=== PATIENT | male | born 1945 | race Caucasian/White ===

== ENCOUNTER 2017-03-25 18:14 | Emergency (ER) | payer MEDICARE, OTHER | END 2017-03-25 21:26 | disposition home or self-care (01) | LOC: ER1 18:14 | DX: T84.021A Dislocation of internal left hip prosthesis, initial encounter (principal); G40.909 Epilepsy, unspecified, not intractable, without status epilepticus; I69.954 Hemiplegia and hemiparesis following unspecified cerebrovascular disease affecting left non-dominant side; F17.210 Nicotine dependence, cigarettes, uncomplicated; Z79.899 Other long term (current) drug therapy; X50.1XXA Overexertion from prolonged static or awkward postures, initial encounter; Y92.009 Unspecified place in unspecified non-institutional (private) residence as the place of occurrence of the external cause | CPT/HCPCS: 27266; 73502; 96374; 96375; 96376; 99152; 99153; 99283; J2270; J2405; J3360 ==

== ENCOUNTER 2017-03-30 06:12 | Inpatient (IN) | payer MEDICARE, OTHER ==
[~2017-03-30] VITALS: Ht 190.5 cm; Wt 96.2 kg
[2017-03-30] MEDS ORDERED: ASPIR 8181 MG PO (06:45)
[2017-03-30] MEDS ORDERED: LIPITOR TAB 1010 MG PO (06:45)
[2017-03-30] MEDS ORDERED: SYMBICORT 16010.2 GM INH (06:47)
[2017-03-30] MEDS ORDERED: BUSPIRONE HCL10 MG PO (06:47)
[2017-03-30] MEDS ORDERED: CELEBREX200 MG PO (06:48)
[2017-03-30] MEDS ORDERED: DEPAKOTE 250 M250 MG PO (06:49)
[2017-03-30] MEDS ORDERED: CYMBALTA60 MG PO (06:49)
[2017-03-30] MEDS ORDERED: NEURONTIN 400400 MG PO (06:49)
[2017-03-30] MEDS ORDERED: NORCO 10-325 T1 EACH PO (06:50)
[2017-03-30] MEDS ORDERED: LISINOPRIL20 MG PO (06:51)
[2017-03-30 06:53] LABS: HEMOGLOBIN 13.7 gm/dl (14.0-17.5); RED BLOOD COUNT 4.41 M/UL (4.20-5.50); WHITE BLOOD COUNT 13.8 K/UL (4.5-11.0)
[2017-03-30] MEDS ORDERED: METOPROLOL SUC100 MG PO (06:53)
[2017-03-30] MEDS ORDERED: SPIRIVA HANDIH18 MCG INH (06:53)
[2017-03-30] MEDS ORDERED: PANTOPRAZOLE SO40 MG PO (06:53)
[2017-03-30 14:10] LABS: HEMOGLOBIN 10.4 gm/dl (14.0-17.5)
[2017-03-30 16:42] LABS: BUN/CREATININE RATIO 15 (0-10)
[2017-03-30 22:19] LABS: HEMOGLOBIN 9.3 gm/dl (14.0-17.5)
[2017-03-30 22:38] LABS: BUN/CREATININE RATIO 16 (0-10)
[2017-03-31 03:24] LABS: HEMOGLOBIN 8.7 gm/dl (14.0-17.5); RED BLOOD COUNT 2.86 M/UL (4.20-5.50); WHITE BLOOD COUNT 13.8 K/UL (4.5-11.0)
[2017-03-31 04:02] LABS: BUN/CREATININE RATIO 18 (0-10)
[2017-03-31 10:26] LABS: HEMOGLOBIN 8.6 gm/dl (14.0-17.5)
[2017-03-31 15:57] LABS: HEMOGLOBIN 7.9 gm/dl (14.0-17.5)
[2017-04-01 03:58] LABS: HEMOGLOBIN 10.1 gm/dl (14.0-17.5); RED BLOOD COUNT 3.29 M/UL (4.20-5.50); WHITE BLOOD COUNT 13.7 K/UL (4.5-11.0)
[2017-04-01 04:18] LABS: BUN/CREATININE RATIO 14 (0-10)
[2017-04-01 16:37] LABS: HEMOGLOBIN 10.4 gm/dl (14.0-17.5)
[2017-04-02 07:31] LABS: HEMOGLOBIN 8.9 gm/dl (14.0-17.5); WHITE BLOOD COUNT 12.5 K/UL (4.5-11.0)
[2017-04-02 07:44] LABS: BUN/CREATININE RATIO 19 (0-10)
[2017-04-02 07:51] LABS: RED BLOOD COUNT 2.92 M/UL (4.20-5.50)
[2017-04-04 06:08] LABS: HEMOGLOBIN 8.5 gm/dl (14.0-17.5); RED BLOOD COUNT 2.74 M/UL (4.20-5.50); WHITE BLOOD COUNT 12.2 K/UL (4.5-11.0)
[2017-04-04 06:28] LABS: BUN/CREATININE RATIO 24 (0-10)
[2017-04-05 06:05] LABS: HEMOGLOBIN 7.5 gm/dl (14.0-17.5); RED BLOOD COUNT 2.42 M/UL (4.20-5.50); WHITE BLOOD COUNT 9.1 K/UL (4.5-11.0)
[2017-04-06 06:05] LABS: HEMOGLOBIN 8.6 gm/dl (14.0-17.5)
[2017-04-06] MEDS ORDERED: MULTIVITAMINS1 EAC1 PO (16:32)
[2017-04-06] MEDS ORDERED: HABITROL 21 MG P1 EA TD (16:32)
[2017-04-06] MEDS ORDERED: XARELTO10 MG PO (16:33)
[2017-04-06] MEDS ORDERED: LORTAB 5-325 M1 EACH PO (16:35)
== END 2017-04-06 16:55 | DRG 466 ==
LOC: CCU 06:12 → ZOBSOF 06:12 → CCU 18:09 → M/S 04-01 19:15
PROVIDERS: Hospitalist; Internal Medicine; ADMIT Orthopaedic Surgery
PROC: 0SPB09Z Removal of Liner from Left Hip Joint, Open Approach (ICD-10-PCS; 2017-03-30)
PROC: 0SUE09Z Supplement Left Hip Joint, Acetabular Surface with Liner, Open Approach (ICD-10-PCS; 2017-03-30)
PROC: 0SPE0JZ Removal of Synthetic Substitute from Left Hip Joint, Acetabular Surface, Open Approach (ICD-10-PCS; 2017-03-30)
PROC: 5A09357 Assistance with Respiratory Ventilation, Less than 24 Consecutive Hours, Continuous Positive Airway Pressure (ICD-10-PCS; 2017-03-30)
PROC: 0SRE01A Replacement of Left Hip Joint, Acetabular Surface with Metal Synthetic Substitute, Uncemented, Open Approach (ICD-10-PCS; principal; 2017-03-30 07:45)
PROC: 30233N1 Transfusion of Nonautologous Red Blood Cells into Peripheral Vein, Percutaneous Approach (ICD-10-PCS; 2017-03-31)
PROC: 30233N1 Transfusion of Nonautologous Red Blood Cells into Peripheral Vein, Percutaneous Approach (ICD-10-PCS; 2017-03-31)
PROC: 30233N1 Transfusion of Nonautologous Red Blood Cells into Peripheral Vein, Percutaneous Approach (ICD-10-PCS; 2017-04-05)
DX: T84.021A Dislocation of internal left hip prosthesis, initial encounter (principal); R57.1 Hypovolemic shock; J95.821 Acute postprocedural respiratory failure; D62 Acute posthemorrhagic anemia; N17.9 Acute kidney failure, unspecified; Y83.8 Other surgical procedures as the cause of abnormal reaction of the patient, or of later complication, without mention of misadventure at the time of the procedure; Y79.3 Surgical instruments, materials and orthopedic devices (including sutures) associated with adverse incidents; E87.5 Hyperkalemia; G40.909 Epilepsy, unspecified, not intractable, without status epilepticus; J44.9 Chronic obstructive pulmonary disease, unspecified; I25.10 Atherosclerotic heart disease of native coronary artery without angina pectoris; I73.9 Peripheral vascular disease, unspecified; E11.9 Type 2 diabetes mellitus without complications; I10 Essential (primary) hypertension; E78.5 Hyperlipidemia, unspecified; D69.6 Thrombocytopenia, unspecified; E83.42 Hypomagnesemia; G62.9 Polyneuropathy, unspecified; K21.9 Gastro-esophageal reflux disease without esophagitis; D72.829 Elevated white blood cell count, unspecified; R51 Headache; M19.90 Unspecified osteoarthritis, unspecified site; F17.210 Nicotine dependence, cigarettes, uncomplicated; R63.0 Anorexia; G89.29 Other chronic pain; H91.90 Unspecified hearing loss, unspecified ear; Z75.1 Person awaiting admission to adequate facility elsewhere; I25.2 Old myocardial infarction; Z79.82 Long term (current) use of aspirin; Z79.1 Long term (current) use of non-steroidal anti-inflammatories (NSAID); Z68.26 Body mass index [BMI] 26.0-26.9, adult; Z79.51 Long term (current) use of inhaled steroids; Z79.891 Long term (current) use of opiate analgesic; Z79.899 Other long term (current) drug therapy; Z88.5 Allergy status to narcotic agent; Z88.8 Allergy status to other drugs, medicaments and biological substances; Z96.643 Presence of artificial hip joint, bilateral; Z98.42 Cataract extraction status, left eye; Z98.41 Cataract extraction status, right eye; Z98.890 Other specified postprocedural states; Z82.3 Family history of stroke; Z82.49 Family history of ischemic heart disease and other diseases of the circulatory system; Z82.0 Family history of epilepsy and other diseases of the nervous system
CPT/HCPCS: 36415; 36430; 36600; 71010; 72170; 80048; 80053; 80299; 81001; 82803; 82962; 83735; 84132; 85014; 85018; 85025; 85027; 86850; 86900; 86901; 86920; 87070; 87081; 87205; 93005; 94640; 94660; 94664; 97110; 97116; 97530; C1776; J0690; J1100; J1200; J2250; J2270; J2370; J2405; J2710; J3010; J3486; J7030; J7040; J7050; J7120; P9016; P9045; Q0163

== ENCOUNTER 2021-04-10 20:49 | Inpatient (IN) | payer MEDICARE, OTHER ==
[~2021-04-10] VITALS: Ht 175.3 cm; Wt 84.4 kg
[~2021-04-10 20:49] MED LIST: ACETAMINOPHEN325 MG PO; ASPIR 8181 MG PO; BACTROBAN CREAM15 GM TOP; BUSPIRONE HCL10 MG PO; CEFUROXIME500 MG PO; CELEBREX200 MG PO; CYMBALTA 30 MG30 MG PO; CYMBALTA60 MG PO; DEPAKOTE 250 M250 MG PO; HABITROL 21 MG P1 EA TD; HYDROCODON-ACE1 EAC4 PO; IMODIUM CAP 2 MG2 MG PO; KEPPRA 500 MG500 MG PO; LEXAPRO TAB 1010 MG PO; LIPITOR TAB 1010 MG PO; LISINOPRIL20 MG PO; LORTAB 5-325 M1 EACH PO; METOPROLOL SUC100 MG PO; MULTIVITAMINS1 EAC1 PO; NAPROSYN500 MG PO; NEURONTIN 400400 MG PO; NORCO 10-325 T1 EACH PO; OXYCONTIN10 MG PO; PANTOPRAZOLE SO40 MG PO; SPIRIVA HANDIH18 MCG INH; SYMBICORT 16010.2 GM INH; XARELTO10 MG PO
[2021-04-11 00:23] LABS: BUN/CREATININE RATIO 22 (0-10)
[2021-04-11 00:26] LABS: HEMOGLOBIN 7.9 gm/dl (14.0-17.5); RED BLOOD COUNT 2.91 M/UL (4.20-5.50); WHITE BLOOD COUNT 11.7 K/UL (4.5-11.0)
[2021-04-11] MEDS ORDERED: ASPIRIN CHEWABL81 MG PO (01:02)
[2021-04-11] MEDS ORDERED: CLARITIN 10MG T10 MG PO (01:02)
[2021-04-11] MEDS ORDERED: CYMBALTA60 MG PO (01:03)
[2021-04-11] MEDS ORDERED: MIRALAX17 GM PO (01:04)
[2021-04-11] MEDS ORDERED: BUSPAR 10MG10 MG PO (01:04)
[2021-04-11] MEDS ORDERED: COLACE 100MG C100 MG PO (01:04)
[2021-04-11] MEDS ORDERED: CHRONULAC20 GM/30 M PO (01:05)
[2021-04-11] MEDS ORDERED: KEPPRA 500 MG500 MG PO (01:06)
[2021-04-11] MEDS ORDERED: ISOPTO TEARS15 ML OP (01:06)
[2021-04-11] MEDS ORDERED: PREGABALIN50 MG PO (01:07)
[2021-04-11] MEDS ORDERED: ZOFRAN ODT 4 MG4 MG PO (01:08)
[2021-04-11] MEDS ORDERED: SYMBICORT 80-41 INHA INH (01:08)
[2021-04-11] MEDS ORDERED: MAPAP325 MG PO (01:10)
[2021-04-11] MEDS ORDERED: MEDROL TAB 4 MG4 MG PO (01:12)
[2021-04-11] MEDS ORDERED: BACLOFEN5 MG PO (01:12)
[2021-04-11] MEDS ORDERED: PEPCID AC20 MG PO (01:13)
[2021-04-11] MEDS ORDERED: OXYCODONE HCL10 MG PO (01:14)
[2021-04-11] MEDS ORDERED: PLAVIX 75 MG TA75 MG PO (01:15)
[2021-04-11] MEDS ORDERED: DIVALPROEX SOD125 M1 PO (01:15)
[2021-04-11] MEDS ORDERED: RISPERIDONE OD0.5 MG PO (01:16)
[2021-04-11] MEDS ORDERED: FERROUS SULFAT325 M2 PO (01:16)
[2021-04-11] MEDS ORDERED: INVANZ 1 GM VIAL1 GM IV (01:17)
[2021-04-11] MEDS ORDERED: DEPAKOTE ER500 MG PO (01:18)
[2021-04-11] MEDS ORDERED: VANCOMYCIN1.25 GM/22 IV (01:18)
[2021-04-11] MEDS ORDERED: VENTOLIN HFA 66.7 GM INH (01:21)
[2021-04-11] MEDS ORDERED: DULOXETINE HCL60 MG PO (12:13)
[2021-04-11] MEDS ORDERED: DIVALPROEX SOD125 MG PO (12:13)
[2021-04-11] MEDS ORDERED: DEPAKOTE SPRIN125 MG PO (12:19)
[2021-04-12 04:56] LABS: HEMOGLOBIN 7.4 gm/dl (14.0-17.5); RED BLOOD COUNT 2.77 M/UL (4.20-5.50)
[2021-04-12 04:59] LABS: WHITE BLOOD COUNT 8.2 K/UL (4.5-11.0)
[2021-04-12 05:08] LABS: BUN/CREATININE RATIO 19 (0-10)
[2021-04-13 03:41] LABS: HEMOGLOBIN 7.5 gm/dl (14.0-17.5); RED BLOOD COUNT 2.77 M/UL (4.20-5.50); WHITE BLOOD COUNT 8.1 K/UL (4.5-11.0)
[2021-04-13 04:09] LABS: BUN/CREATININE RATIO 18 (0-10)
[2021-04-14 02:23] LABS: HEMOGLOBIN 7.3 gm/dl (14.0-17.5); RED BLOOD COUNT 2.77 M/UL (4.20-5.50); WHITE BLOOD COUNT 10.5 K/UL (4.5-11.0)
[2021-04-14 03:03] LABS: BUN/CREATININE RATIO 18 (0-10)
[2021-04-15 09:41] LABS: HEMOGLOBIN 7.6 gm/dl (14.0-17.5); RED BLOOD COUNT 2.82 M/UL (4.20-5.50); WHITE BLOOD COUNT 9.3 K/UL (4.5-11.0)
[2021-04-15 10:05] LABS: BUN/CREATININE RATIO 16 (0-10)
[2021-04-16 02:37] LABS: HEMOGLOBIN 7.6 gm/dl (14.0-17.5); RED BLOOD COUNT 2.82 M/UL (4.20-5.50); WHITE BLOOD COUNT 10.6 K/UL (4.5-11.0)
[2021-04-16 02:57] LABS: BUN/CREATININE RATIO 16 (0-10)
[2021-04-16] MEDS ORDERED: LOPRESSOR 25 MG25 MG PO (09:51)
== END 2021-04-17 00:05 | DRG 463 ==
LOC: PROG CARE 21:41
PROVIDERS: Family Medicine; Internal Medicine Infectious Disease; Podiatrist Foot & Ankle Surgery; ADMIT Internal Medicine
PROC: 0JBQ0ZZ Excision of Right Foot Subcutaneous Tissue and Fascia, Open Approach (ICD-10-PCS; 2021-04-15)
PROC: 0JBR0ZZ Excision of Left Foot Subcutaneous Tissue and Fascia, Open Approach (ICD-10-PCS; principal; 2021-04-15 21:08)
DX: M86.8X7 Other osteomyelitis, ankle and foot (principal); L89.624 Pressure ulcer of left heel, stage 4; I21.A1 Myocardial infarction type 2; L89.614 Pressure ulcer of right heel, stage 4; L89.154 Pressure ulcer of sacral region, stage 4; G93.41 Metabolic encephalopathy; I96 Gangrene, not elsewhere classified; N30.00 Acute cystitis without hematuria; F05 Delirium due to known physiological condition; G40.909 Epilepsy, unspecified, not intractable, without status epilepticus; H91.90 Unspecified hearing loss, unspecified ear; J44.9 Chronic obstructive pulmonary disease, unspecified; F03.90 Unspecified dementia, unspecified severity, without behavioral disturbance, psychotic disturbance, mood disturbance, and anxiety; G89.4 Chronic pain syndrome; D53.9 Nutritional anemia, unspecified; D50.9 Iron deficiency anemia, unspecified; L89.221 Pressure ulcer of left hip, stage 1; L89.211 Pressure ulcer of right hip, stage 1; Z96.643 Presence of artificial hip joint, bilateral; Z96.698 Presence of other orthopedic joint implants; Z88.8 Allergy status to other drugs, medicaments and biological substances; Z87.820 Personal history of traumatic brain injury; Z98.42 Cataract extraction status, left eye; Z98.41 Cataract extraction status, right eye
CPT/HCPCS: 36415; 70450; 80048; 80053; 82140; 82550; 82553; 82607; 82728; 82746; 83540; 83550; 83735; 84443; 84484; 85025; 86140; 87070; 87077; 87186; 87205; 94760; A6212; C9113; J0696; J1335; J1644; J1756; J2001; J2185; J3010; J7030; J7120; U0002